=== PATIENT | female | born 1940 | race Caucasian/White ===

== ENCOUNTER 2024-10-16 10:32 | Emergency (ER) | payer MEDICARE, SELFPAY ==
[2024-10-16 10:34] VITALS: BP 136/75; PULSE 71; PULSE 74; RESP 16; RESP 18; TEMP 36.7; O2SAT 92; O2SAT 98; BMI 22.3
--- NOTE | 2024-10-16 10:48 | EKG_ITS ---
[facility] Test Date: 2024-10-16 Pat Name: ERIC FELICIANO Department: Room: - Gender: Female Angio Technologist: : 1940 Requested By: Nicole Snowden Order Number: [id number] Reading MD: Nicole Snowden Measurements Intervals [place] Rate: 65 P: -10 [place]: 135 QRS: 52 QRSD: 90 T: 17 QT: 430 QTc: 450 Interpretive Statements SINUS RHYTHM POSSIBLE LEFT ATRIAL ENLARGEMENT [-0.1mV P-WAVE IN V1/V2] NONSPECIFIC T-WAVE ABNORMALITY No previous ECG available for comparison /store/S0/[id number].pdf
--- NOTE | 2024-10-16 10:58 | XR_ITS ---
Examination: CT cervical spine without contrast 2-D sagittal reconstructions 2-D coronal reconstructions 3-D reconstructions. Exam date and time:October 16, 2024 at 11:45 AM Comparison November 01, 2023 INDICATIONS: Patient fell today with image of the neck, neck pain CTDI:vol (mGy) 7.54 DLP: (mGycm) 155 Technique: Multiple 2 mm axial sections of the cervical spine have been obtained. The coronal and sagittal reconstructions have been obtained. 3-D reconstructions have been obtained. Low dose protocols were performed. One or more of the following dose reduction techniques were used; automated exposure control, adjustment of the mA and/or KV according to patient size, use of iterative reconstruction technique. Findings: Axial sections demonstrate intact base of the skull. C1 exhibit satisfactory relationship to the odontoid. No acute cervical vertebral body fracture seen. Alignment posterior spinous processes satisfactory. Impression: No acute cervical fracture.
--- NOTE | 2024-10-16 10:58 | XR_ITS ---
Examination: CT brain head without contrast. 2-D sagittal coronal reconstructions Date and time of exam:October 16, 2024, 11:45 AM Comparison November 01, 2023 INDICATIONS: Ground-level fall today head vein CTDI: vol (mGy):47.5 DLP: (mGycm):987 Technique: Multiple CT axial sections of the brain have been obtained, 5 mm slice thickness. Contrast has not been administered. 2-D sagittal, coronal reconstructions have been obtained Low dose protocols were performed. One or more of the following dose reduction techniques were used; automated exposure control, adjustment of the mA and/or KV according to patient size, use of iterative reconstruction technique. Findings: No significant ventricular enlargement. Intra-axial or extra-axial hemorrhage density is not seen. No mass effect or midline shift Basal cisterns are not remarkable. Fourth ventricle is midline. Cranial vault intact. 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
--- NOTE | 2024-10-16 10:59 | EDNOTE_ITS ---
<Statement entered by Nicole Flores MD - 10/16/24 13:55> As co-signing physician, I was present and available for consult prn. I concur with the plan and care as documented by the midlevel provider. ED General RME/HPI General Chief complaint: Syncope / Near Syncope Stated complaint: SYNCOPE EPISODE Time Seen by Provider: 10/16/24 10:55 Arrival date/time: 10/16/24 10:32 CC: Syncope HPI patient presents to the ER via EMS after syncopal event. The patient is very animated stating that she recently had a stroke, and his poor vision was getting up to go to the bathroom when she blacked out . Patient recalls no event prior to this dizziness lightheaded. Admits that she had similar event months ago that resulted in a stroke , that ultimately resulted in her poor vision. Patient is awake alert oriented x [address] complaining of pain in her right hand and right elbow where she has obvious skin tears and/or lacerations. Patient currently denies chest pain shortness of breath or difficulty breathing Related Data Previous Rx's ?Medication ?Instructions ?Recorded cephalexin 500 mg capsule 500 mg PO BID #14 caps 10/31 Allergies Allergy/AdvReac Type Severity Reaction Status Date / Time Penicillins Allergy Verified 11/01/23 06:29 Review of Systems Review of Systems Narrative Review of Systems: GEN: No fever, no chills, no weight loss EYES: No discharge, no visual changes, no pain HEENT: No ear pain, no congestion, no sore throat PULM: No shortness of breath, no cough, no congestion CV: No chest pain, no dyspnea on exertion, no palpitations GI: No nausea, no vomiting, no diarrhea, no pain, no constipation : No frequency, no urgency, no dysuria MUSC/SKEL: No joint pain, no back pain SKIN: No rash PSYCH: No hallucinations, no depression HEME/LYMPH: No easy bleeding or bruising tendencies NEURO: No weakness, no headache Past Medical History Past Medical History NEUROLOGIC: Positive Cerebrovascular Accident CARDIAC: Positive Hypertension; Negative Congestive Heart Failure RESPIRATORY: Negative Chronic Obstructive Pulmonary Disease (COPD) GENITOURINARY: Negative Renal Disease REPRODUCTIVE: Positive Breast Cancer (LUMPECTOMY) ENT: Positive History of ENT Problems ENDOCRINE: Positive Diabetes Mellitus Type 2; Negative Diabetes Mellitus Type 1 OTHER HISTORY: Positive Cancer and Breast Cancer (LUMPECTOMY) Social History SMOKING STATUS: Never smoker ED Exam Narrative Physical exam: [General: Appears not in any acute distress Head normocephalic, no step-offs hematoma induration ulceration ulceration or depressions. HEENT: Eyes pupils are PERRLA EOMs are intact. Mouth pink dry membranes uvula is midline swallow symmetrical nose no rhinorrhea. Although the substance of HEENT are within acceptable limits Neck is supple nontender Chest equal chest rise nontender to palpation Respiratory: Clear to auscultation no wheezes crackles or rubs CV: Rate rhythm is regular no murmurs rubs or clicks Abdomen is soft nontender no masses positive bowel sounds all 4 quadrants Back: No CVA tenderness no spinous process tenderness from cervical spine thoracic and lumbar spine Skin: 5 cm semilunar skin tear to the left elbow, another 5 cm semilunar skin tear to the left thumb. Otherwise skin is intact no petechiae rash induration ulceration or crepitus Extremities: Moving all extremity against resistance cap refill less than 2 seconds neurosensory intact Neuro: Awake alert oriented x3, person and place, Glascow coma 15 no focal deficits] Course Quality Measures none Orders Category Date Time Status EKG (ED ONLY) *Do not use* NOW Care 10/16/24 10:[address] cervical spine wo con Stat Exams 10/16/24 10:[address] head/brain wo con Stat Exams 10/16/24 10:58 Completed EKG (ED Only) Stat Exams 10/16/24 10:48 Draft XR elbow comp LT min 3V Stat Exams 10/16/24 12:41 Taken XR shoulder LT min 2V Stat Exams 10/16/24 12:41 Taken B-Type Natriuretic Peptide Stat Lab 10/16/24 11:10 Completed CBC Stat Lab 10/16/24 11:10 Completed Comprehensive Metabolic Panel Stat Lab 10/16/24 11:10 Completed Drug Screen,Urine Stat Lab 10/16/24 11:05 Completed LDH (Lactate Dehydrogenase) Stat Lab 10/16/24 11:10 Completed Magnesium Stat Lab 10/16/24 11:10 Completed Partial Thromboplastin Time Stat Lab 10/16/24 11:10 Completed Prothrombin Time with INR Stat Lab 10/16/24 11:10 Completed Troponin I Stat Lab 10/16/24 11:10 Completed Urinalysis Stat Lab 10/16/24 11:05 Completed Vital Signs Vital signs: Vital Signs Temperature 98.1 F 10/16/24 10:34 Pulse Rate 71 10/16/24 10:34 Respiratory Rate 18 10/16/24 10:34 Blood Pressure 136/75 H 10/16/24 10:34 Pulse Oximetry (%) 92 L 10/16/24 10:34 Oxygen Delivery Method Room Air 10/16/24 10:34 [facility] Patient data External records reviewed:: [facility] previous records and EMS form Clinical information provided by:: patient and EMS Social determinants that could affect healthcare access:: none Patient has the following chronic illnesses:: CVA How is presenting disease/condition affected by chronic disease/condition?: u neffected by Evaluation data The following diagnostics were reviewed and interpreted by me:: lab results, radiology exam(s) and EKG tracing(s) Lab and/or radiology exams considered but not ordered:: EKG performed at 1051 shows a ventricular rate of 6 5 WA interval 135 QRS of 9 0 QTc 442 this is sinus rhythm nonspecific T wave abnormalities baseline artifact. No old EKG for comparison. CT head and C-spine as interpreted by me read by radiology are negative for any acute finding requires emergent or immediate intervention CMP shows a mild leukocytosis of 12.6 no anemia thrombocytopenia Coags within acceptable limits CMP shows no significant electrolyte imbalances renal impairment transaminitis or T. bili elevation. The BNP is mildly elevated to 99 Troponin is 0.029 Urine is negative for urinary tract infection UDS is negative. Left elbow and shoulder x-rays interpreted by me show osteopenia but no acute fracture malalignment or dislocation. Interpretation Summary: Reassessment of this patient at 1237 the patient has had no acute deterioration neurologic status is awake alert and oriented there is no acute finding in her workup at this time and comfortable discharging this patient home with syncope. Medications Medications considered but not ordered:: None none Medication administrations:: None Consultations Consultation(s) initiated? (list below): No Diagnosis Differential Diagnosis ED Complaint MDM: Syncope CVA ACS CO Most likely diagnosis given after review of the tests above:: Syncope Admission Indicated Admission indicated?: not indicated Explain why admission is indicated or not indicated:: Stable for outpatient follow-up Admission Request Was there a request for admission?: No Disposition Plan Disposition Plan: Discharge Discharge Attestation Discharge Attestation: The patient and all family members were given an opportunity to ask questions and understood the discharge instructions. Discharge instructions specifically effects, indications for sooner follow up or return to the emergency department, and the expected course of current diagnosis. Patient condition: Stable Medical Decision Making Differential Diagnosis Differential Diagnosis: Syncope CVA ACS CO Lab Data 10/16/24 11:10 10/16/24 11:10 Labs: Lab Results 10/16/24 10/16/24 Range/Units 11:05 11:10 WBC 12.6 H (3.6-11.0) Thou/mm3 RBC 4.97 (4.00-5.20) Miln/mm3 Hgb 13.9 (12.0-16.0) g/dL Hct 41.9 (36.0-46.0) % MCV 84 (80-100) fL MCH 28.0 (25.0-35.0) pg MCHC 33.2 (31.0-37.0) g/dl RDW Std Deviation 41.1 (36.4-46.3) fL Plt Count 278 (140-440) Thou/mm3 Neut % (Auto) 79 (37-80) % Lymph % (Auto) 15 (10-50) % Payne % (Auto) 5 (0-12) % Eos % (Auto) 1 (0-10) % Baso % (Auto) 0 (0-2.5) % Neut # (Auto) 9.9 H (1.8-7.7) Thou/mm3 Lymph # (Auto) 1.8 (1.0-4.8) Thou/mm3 Payne # (Auto) 0.7 (0.0-0.8) Thou/mm3 Eos # (Auto) 0.1 (0.0-0.5) Thou/mm3 Baso # (Auto) 0.1 (0.0-0.2) Thou/mm3 Immature Gran # (Auto) 0.04 H (0.00-0.00) Thou/mm3 Absolute Nucleated RBC 0.00 (0.00-0.00) Thou/mm3 Immature Gran % 0 (0-0) % Nucleated RBC % 0 (0) /100 WBC PT 11.9 (9.0-12.2) Seconds INR 1.1 (0.9-1.3) APTT 29.1 (22.0-36.0) Seconds Sodium 142 (136-145) mMol/L Potassium 3.8 (3.4-5.1) mMol/L Chloride 107 (98-107) mMol/L Carbon Dioxide 26.0 (20.0-31.0) mMol/L Anion Gap 9 (7-16) BUN 12 (9-23) mg/dL Creatinine 1.2 (0.6-1.3) mg/dL Estim Creat Clear Calc 29.1 L (>60) mL/min eGFR 44 L (60 - ) See Note BUN/Creatinine Ratio 10 L (12-20) Ratio Glucose 149 H (74-106) mg/dL Calculated Osmolality 285 (275-295) Calcium 9.4 (8.3-10.6) mg/dL Corrected Calcium 9.4 (8.5-10.1) mg/dL Magnesium 1.8 (1.6-2.6) mg/dL Total Bilirubin 0.5 (0.3-1.2) mg/dL AST 16 (0-34) U/L ALT 11 (10-49) U/L Alkaline Phosphatase 122 H (46-116) U/L Lactate Dehydrogenase 192 (120-246) U/L Troponin I 0.029 (0.0-0.045) ng/mL B-Natriuretic Peptide 299 H (0-100) pg/mL Total Protein 7.2 (5.7-8.2) gm/dL Albumin 4.2 (3.4-4.8) gm/dL Globulin 3.0 (2.3-3.5) gm/dL Albumin/Globulin Ratio 1.4 (1.2-2.2) Ur Collection Type Clean Catch Urine Color Lt-Yellow (Lt Yel-Yel) Urine Clarity Clear (Clear/Hazy) Urine pH 6.0 (5.0-7.0) Ur Specific Thornton 1.015 (1.001-1.035) Urine Protein Trace (Neg - Trace) Urine Glucose (UA) Negative (Negative) Urine Ketones Negative (Negative) Urine Blood Negative (Negative) Urine Nitrite Negative (Negative) Urine Bilirubin Negative (Negative) Urine Urobilinogen (Auto) Negative (0.0-1.0) mg/dL Ur Leukocyte Esterase Positive (Negative) Urine RBC 1 (0-3) /hpf Urine WBC 3 (0-5) /hpf Ur Squamous Epith Cells 1 (0-5) /hpf Urine Bacteria None (None) Hyaline Casts < 1 (0-1) /hpf Urine Opiates Screen Negative (Negative) Urine Fentanyl Screen Negative (Negative) Ur Barbiturates Screen Negative (Negative) U Amphetamin/Meth Scrn Negative (Negative) U Benzodiazepines Scrn Negative (Negative) U Cocaine Metab Screen Negative (Negative) U Marijuana (THC) Screen Negative (Negative) Discharge Plan Plan Patient Disposition: HOME (Self Care) Patient condition on transfer: Stable Prescriptions/Referrals Prescriptions/Med Rec: No Action cephalexin 500 mg capsule 500 mg PO BID Qty: 14 0RF Referrals: Jermain Stubbs MD [Primary Care Provider] - In 1 week Problem List Clinical Impression: Syncope, ISTAP type 1 skin tear of left elbow, ISTAP type 1 skin tear of left hand Patient/Caregiver Discharge Instructions Education Materials: Causes of Syncope, ED Skin Avulsion Print Language: Marshallese Stand Alone Forms: Nely Award Info., Patient Portal Info Letter PA/STATISTICS TEACHER Supervising Physician PA/STATISTICS TEACHER Supervising Physician: Salvador Heredia ENP
[2024-10-16 11:23] LABS: Basophils # (Auto) 0.1 Thou/mm3 (0.0-0.2); Basophils % (Auto) 0 % (0-2.5); Eosinophils # (Auto) 0.1 Thou/mm3 (0.0-0.5); Eosinophils % (Auto) 1 % (0-10); Hematocrit 41.9 % (36.0-46.0); Hemoglobin 13.9 g/dL (12.0-16.0); Immature Granulocytes % (Auto) 0 % (0-0); Immature Granulocytes Auto 0.04 Thou/mm3 (0.00-0.00); Lymphocytes # (Auto) 1.8 Thou/mm3 (1.0-4.8); Lymphocytes % (Auto) 15 % (10-50); Mean Corpuscular HGB Conc 33.2 g/dl (31.0-37.0); Mean Corpuscular Volume 84 fL (80-100); Monocytes # (Auto) 0.7 Thou/mm3 (0.0-0.8); Monocytes % (Auto) 5 % (0-12); Neutrophils # (Auto) 9.9 Thou/mm3 (1.8-7.7); Neutrophils % (Auto) 79 % (37-80); Nucleated Red Blood Cell % 0 /100 WBC (0); Platelet Count 278 Thou/mm3 (140-440); RDW Standard Deviation 41.1 fL (36.4-46.3); Red Blood Count 4.97 Miln/mm3 (4.00-5.20); White Blood Count 12.6 Thou/mm3 (3.6-11.0)
[2024-10-16 11:25] LABS: Collection Type, Urine Clean Catch
[2024-10-16 11:34] LABS: Bilirubin,Urine Negative (Negative); Blood,Urine Negative (Negative); Clarity,Urine Clear (Clear/Hazy); Color,Urine Lt-Yellow (Lt Yel-Yel); Glucose, Urine Negative (Negative); Hyaline Casts,Urine < 1 /hpf (0-1); Ketones,Urine Negative (Negative); Leukocyte Esterase,Urine Positive (Negative); Nitrite,Urine Negative (Negative); Protein,Urine Trace (Neg - Trace); RBC,Urine 1 /hpf (0-3); Specific Gravity,Urine 1.015 (1.001-1.035); Squamous Epithelial Cell,Urine 1 /hpf (0-5); Urobilinogen,Urine Negative mg/dL (0.0-1.0); WBC,Urine 3 /hpf (0-5)
[2024-10-16 11:38] LABS: INR 1.1 (0.9-1.3); Partial Thromboplastin Time 29.1 Seconds (22.0-36.0); Prothrombin Time 11.9 Seconds (9.0-12.2)
[2024-10-16 11:40] LABS: B-Type Natriuretic Peptide 299 pg/mL (0-100)
[2024-10-16 11:42] LABS: Alanine Aminotransferase 11 U/L (10-49); Albumin, Serum 4.2 gm/dL (3.4-4.8); Albumin/Globulin Ratio 1.4 (1.2-2.2); Alkaline Phosphatase 122 U/L (46-116); Anion Gap 9 (7-16); Aspartate Amino Transferase 16 U/L (0-34); BUN/Creatinine Ratio 10 Ratio (12-20); Bilirubin,Total 0.5 mg/dL (0.3-1.2); Blood Urea Nitrogen 12 mg/dL (9-23); Calcium 9.4 mg/dL (8.3-10.6); Calcium (Corrected) 9.4 mg/dL (8.5-10.1); Chloride 107 mMol/L (98-107); Creatinine (Component) 1.2 mg/dL (0.6-1.3); Estimated Creatinine Clearance 29.1 mL/min (>60); Glucose 149 mg/dL (74-106); LDH (Lactate Dehydrogenase) 192 U/L (120-246); Magnesium 1.8 mg/dL (1.6-2.6); Osmolality,Calculated 285 (275-295); Potassium 3.8 mMol/L (3.4-5.1); Sodium 142 mMol/L (136-145); Total Protein 7.2 gm/dL (5.7-8.2); Troponin I 0.029 ng/mL (0.0-0.045); eGFR 44 See Note
[2024-10-16 11:50] LABS: Amphetamine/Methamp Scrn,U Negative (Negative); Barbiturate Screen,Urine Negative (Negative); Benzodiazepines Screen,Urine Negative (Negative); Benzoylecgonine Screen, Ur Negative (Negative); Fentanyl Screen,Urine Negative (Negative); Opiate Screen,Urine Negative (Negative); THC Screen,Urine Negative (Negative)
[2024-10-16 12:26] VITALS: BP 141/88; PULSE 76; RESP 17; TEMP 36.7; O2SAT 95
--- NOTE | 2024-10-16 12:41 | XR_ITS ---
Examination: Left elbow 3 views Technique: Elbow AP, oblique, lateral 3 views Exam date and time: October 16, 2024 1254 hours INDICATIONS: Patient fell today with injury to the elbow, elbow pain. FINDINGS: Severe osteopenia. No acute fracture Small elbow effusion IMPRESSION: No acute fracture Given the elbow effusion and severe osteopenia, recommend short-term follow-up elbow films as clinically warranted.
--- NOTE | 2024-10-16 12:41 | XR_ITS ---
Examination: Shoulder,left, 3 views Technique: Shoulder AP internal rotation, AP external rotation, Y view shoulder, 3 views Exam date and time :October 16, 2024, 12:54 PM INDICATION: Patient fell today with injury to the left shoulder, left shoulder pain FINDINGS: No acute fracture or shoulder dislocation No AC joint separation IMPRESSION: No acute shoulder fracture or dislocation
[2024-10-16 14:12] VITALS: BP 160/74; PULSE 81; RESP 18; TEMP 36.5; O2SAT 96
[2024-10-16 14:45] VITALS: BP 160/66; PULSE 84; RESP 16; TEMP 36.6; O2SAT 99
== END 2024-10-16 14:49 | disposition home or self-care (01) ==
PROVIDERS: Registered Nurse General Practice; Emergency Provider Emergency Medicine; PCP Family Medicine
DX: S51.012A Laceration without foreign body of left elbow, initial encounter (principal); S61.412A Laceration without foreign body of left hand, initial encounter; R55 Syncope and collapse; R94.31 Abnormal electrocardiogram [ECG] [EKG]; M54.2 Cervicalgia; M85.812 Other specified disorders of bone density and structure, left shoulder; D72.829 Elevated white blood cell count, unspecified; I10 Essential (primary) hypertension; H54.7 Unspecified visual loss; W18.30XA Fall on same level, unspecified, initial encounter; Z86.73 Personal history of transient ischemic attack (TIA), and cerebral infarction without residual deficits
CPT/HCPCS: 36415; 70450; 72125; 73030; 73080; 80053; 80307; 81001; 83615; 83735; 83880; 84484; 85025; 85610; 85730; 93005; 99284